=== PATIENT | female | born 1945 | race African-American/Black ===

== ENCOUNTER → 2016-11-06 | Outpatient (CLI) | payer OTHER ==
--- NOTE | ~2016-11-06 | NM78 ---
[facility] A Service of [facility] RADIOLOGY TEXT RESULTS PATIENT: AVA AGOSTO LOCATION: [facility] : 47 UNIT #: [id number] AGE: [address]: Fernanda Denney MD SEX: F ORDER DR: [id number] [facility] [address] [place], [place] [address] [id number] O MR#: [id number] Acc #: [id number] NAME: AVA AGOSTO : 1945 SEX: F STUDY DATE/TIME: 11/06/2016 12:37 UNIT: [facility] ROOM: STUDY DESCRIPTION: SD Radiopharm Tx oral Attending Physician: Fernanda Denney M.D. Ordering Physician: Fernanda Denney M.D. Primary Care Physician: Foster Santa M.D. MEDICAL IMAGING REPORT This report is preliminary unless electronic signature is present EXAM Iodine-131 Adenosine 11/06/2016 HISTORY 71-year-old patient who reports an enlarging thyroid gland with increasing discomfort in the throat. 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 FINDINGS The patient's outside laboratory data and imaging reports were reviewed. She was noted to have a normal 24-hour uptake value of 15.8%. Patient had a minimally low TSH level. Patient had a history of recent benign thyroid biopsy. Given these values, the patient was discussed directly with Dr. Denney today. He reports that the I131 dose is expected to shrink the gland and cause relief of patient's physical symptoms as she is not a surgical candidate. This was subsequent discussed with the patient and she is in agreement. Her identity was subsequently confirmed. She was given her radiation precaution instructions, and she reported that she would have no problem adhering to these for the required time. Her questions were answered. She was then given a single capsule of 32.5 mCi of Iodine-131. She took this with sips of water and was instructed not to eat for at least 60 minutes. She was then released from the department. IMPRESSION Patient was administered 32.5 mCi of Iodine-131 in a single capsule with sips of water. See full discussion above. Dictated by... Mykel Garcia Jr., M.D. THIS IS AN ELECTRONICALLY VERIFIED REPORT [facility]. [facility] A Service of [facility] RADIOLOGY TEXT RESULTS PATIENT: AVA AGOSTO LOCATION: [facility] : 47 UNIT #: [id number] AGE: [address]: Fernanda Denney MD SEX: F ORDER DR: Mykel Garcia Jr., M.D. at 11/07/2016 8:47 PM MORELIA/cindy TD: 11/06/2016 15:48 JOB #: [id number] MEDICAL IMAGING REPORT Page 1 of 1 COPY
== END | disposition home or self-care (01) ==
LOC: CNUC 12:01
DX: E05.20 Thyrotoxicosis with toxic multinodular goiter without thyrotoxic crisis or storm (principal)
CPT/HCPCS: 79005; A9517